=== PATIENT | male | born 1975 | race Two or more races ===

== ENCOUNTER 2017-12-30 22:14 | Emergency (ER) | payer SELFPAY, OTHER | END 2017-12-31 00:03 | disposition home or self-care (01) | LOC: FTE 22:14 | DX: S90.811A Abrasion, right foot, initial encounter (principal); F17.210 Nicotine dependence, cigarettes, uncomplicated; W18.41XA Slipping, tripping and stumbling without falling due to stepping on object, initial encounter; Y92.832 Beach as the place of occurrence of the external cause | CPT/HCPCS: 99282 ==